=== PATIENT | male | born 1990 | race African-American/Black ===

== ENCOUNTER 2016-11-14 21:22 | Emergency (ER) | payer MEDICAID ==
[~2016-11-14] VITALS: Ht 190.5 cm; Wt 90.7 kg
[2016-11-14 21:39] VITALS: BP 127/67
== END 2016-11-14 23:54 | disposition home or self-care (01) ==
LOC: ER 21:24
DX: S50.01XA Contusion of right elbow, initial encounter (principal); F31.9 Bipolar disorder, unspecified; F10.20 Alcohol dependence, uncomplicated; F17.210 Nicotine dependence, cigarettes, uncomplicated; W13.8XXA Fall from, out of or through other building or structure, initial encounter; Y93.89 Activity, other specified; Y92.89 Other specified places as the place of occurrence of the external cause; Y99.8 Other external cause status
CPT/HCPCS: 73080; 99284; A4606; Z7610

== ENCOUNTER 2017-06-02 13:11 | Emergency (ER) | payer MEDICAID ==
[~2017-06-02] VITALS: Ht 190.5 cm; Wt 108.9 kg
[2017-06-02 13:28] VITALS: BP 133/75
== END 2017-06-02 13:52 | disposition home or self-care (01) ==
LOC: ER 13:14
DX: J40 Bronchitis, not specified as acute or chronic (principal); B00.9 Herpesviral infection, unspecified; F10.10 Alcohol abuse, uncomplicated; F31.9 Bipolar disorder, unspecified; F17.200 Nicotine dependence, unspecified, uncomplicated; J45.909 Unspecified asthma, uncomplicated
CPT/HCPCS: 99283; A4606; Z7610

== ENCOUNTER 2017-12-19 08:36 | Emergency (ER) | payer MEDICAID, OTHER ==
[~2017-12-19] VITALS: Ht 190.5 cm; Wt 108.9 kg
--- NOTE | 2017-12-19 08:50 | NUR ---
PRESENTS TO ER C/O RING STUCKED ON RT HAND 4TH FINGER. FINGER RED AND SWOLLEN. ALSO C/O NON PRODUCTIVE COUGH SINCE YESTERDAY. A/OX 4. BREATHING EVEN AND UNLABORED. NO SOB, NAD, VITALS STABLE. SAFETY AND COMFORT MEASURES IN PLACE. AWAITING MD ORDERS.
--- NOTE | 2017-12-19 09:35 | NUR ---
EMT AT BEDSIDE WITH RING CUTTER.
--- NOTE | 2017-12-19 10:03 | NUR ---
[employer]ARD MILL SUPERVISOR AT BEDSIDE.
[2017-12-19 10:27] VITALS: BP 146/83
--- NOTE | 2017-12-19 10:27 | NUR ---
Patient discharged to home in stable condition. Written and verbal after care instructions given. Patient verbalizes understanding of instruction.
== END 2017-12-19 10:28 | disposition home or self-care (01) ==
LOC: ER 08:37
DX: S60.454A Superficial foreign body of right ring finger, initial encounter (principal); J40 Bronchitis, not specified as acute or chronic; F32.9 Major depressive disorder, single episode, unspecified; F17.200 Nicotine dependence, unspecified, uncomplicated; W22.8XXA Striking against or struck by other objects, initial encounter; Y93.89 Activity, other specified; Y92.89 Other specified places as the place of occurrence of the external cause; Y99.8 Other external cause status
CPT/HCPCS: 71045; 99284; A4606; Z7610

== ENCOUNTER 2018-04-14 07:04 | Emergency (ER) | payer MEDICAID, OTHER ==
[~2018-04-14] VITALS: Ht 190.5 cm; Wt 106.6 kg
--- NOTE | 2018-04-14 07:10 | NUR ---
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 DENIES TRAUMA. VSS , ATTACHED TO MONITOR WILL CONTINUE TO MONITOR
--- NOTE | 2018-04-14 07:58 | NUR ---
Patient discharged to home in stable condition. Written and verbal after care instructions given. Patient verbalizes understanding of instruction. VSS ,
[2018-04-14 08:00] VITALS: BP 132/45
== END 2018-04-14 08:00 | disposition home or self-care (01) ==
LOC: ER 07:06
DX: S70.01XA Contusion of right hip, initial encounter (principal); M54.41 Lumbago with sciatica, right side; J45.909 Unspecified asthma, uncomplicated; F31.9 Bipolar disorder, unspecified; F90.9 Attention-deficit hyperactivity disorder, unspecified type; F10.10 Alcohol abuse, uncomplicated; F17.200 Nicotine dependence, unspecified, uncomplicated; F12.10 Cannabis abuse, uncomplicated; Y90.9 Presence of alcohol in blood, level not specified; X58.XXXA Exposure to other specified factors, initial encounter; Y93.84 Activity, sleeping; Y92.810 Car as the place of occurrence of the external cause; Y99.8 Other external cause status
CPT/HCPCS: 72110; 73502; 99284; A4606; Z7610

== ENCOUNTER 2018-06-20 15:42 | Emergency (ER) | payer OTHER ==
[~2018-06-20] VITALS: Ht 190.5 cm; Wt 109.8 kg
--- NOTE | 2018-06-20 15:46 | NUR ---
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
--- NOTE | 2018-06-20 16:32 | NUR ---
ARLINE ROPER AT BEDSIDE FOR EVAL.
[2018-06-20] MEDS ORDERED: ONDANSETRON HCL/PF 4 MG/2 ML VIAL ONE (16:41)
[2018-06-20] MEDS ORDERED: PANTOPRAZOLE 40 MG VIAL ONE (16:41)
[2018-06-20 16:47] LABS: BASOPHILS % (AUTO) 0.6 % (0.0-2.0); EOSINOPHILS % (AUTO) 0.3 % (0.0-6.0); HEMATOCRIT 49 % (39-51); HEMOGLOBIN 15.5 g/dL (13.5-17.5); MEAN CORPUSCULAR HGB CONC 32 g/dl (31.0-36.0); MEAN CORPUSCULAR VOLUME 71 fL (80-96); MONOCYTES % (AUTO) 6.3 % (2.0-12.0); NEUTROPHILS % (AUTO) 70.8 % (43.0-81.0); PLATELET COUNT (AUTO) 191 /CMM (150-450); RED BLOOD CELL COUNT(AUTO) 6.82 MIL/uL (4.5-6.0); WHITE BLOOD COUNT (AUTO) 9.9 K/uL (4.3-11.0)
[2018-06-20 16:48] LABS: BASOPHILS # (AUTO) 0.1 /CMM (0.0-0.2); LYMPHOCYTES # (AUTO) 2.2 /CMM (0.8-4.8); MONOCYTES # (AUTO) 0.6 /CMM (0.1-1.30)
[2018-06-20] MEDS: IV NS 0.9% 1,000 ML BAG IV ONE (16:48)
[2018-06-20] MEDS: PANTOPRAZOLE 40 MG VIAL IV ONE (16:49)
[2018-06-20] MEDS: ONDANSETRON HCL/PF 4 MG/2 ML VIAL IVP ONE (16:49)
[2018-06-20 17:03] LABS: CALCIUM, SERUM 9.3 mg/dL (8.5-10.1); POTASSIUM 4.2 mmol/L (3.5-5.1)
[2018-06-20 17:08] LABS: BILIRUBIN,TOTAL 0.2 mg/dL (0.2-1.0); TOTAL PROTEIN, SERUM 8.1 g/dL (6.4-8.2)
[2018-06-20 17:44] LABS: BAND % (MANUAL) 1 % (0.0-5.0); EOSINOPHILS % (MANUAL) 1 % (0-4)
[2018-06-20 17:53] LABS: NEUTROPHILS % (MANUAL) 63 (42-76)
[2018-06-20 17:54] LABS: LYMPHOCYTES % (MANUAL) 29 % (16-48); MONOCYTES % (MANUAL) 6 % (0-11.0)
--- NOTE | 2018-06-20 18:56 | NUR ---
IV removed. Catheter intact and site benign. Pressure and 4x4 applied to site. No bleeding noted. Patient discharged to home in stable condition. Written and verbal after care instructions given. Patient verbalizes understanding of instruction.
[2018-06-20 18:57] VITALS: BP 119/68
== END 2018-06-20 18:58 | disposition home or self-care (01) ==
LOC: ER 15:43
DX: K29.00 Acute gastritis without bleeding (principal); E86.0 Dehydration; F15.10 Other stimulant abuse, uncomplicated; F32.9 Major depressive disorder, single episode, unspecified; J45.909 Unspecified asthma, uncomplicated; F90.9 Attention-deficit hyperactivity disorder, unspecified type; F17.200 Nicotine dependence, unspecified, uncomplicated
CPT/HCPCS: 36415; 80048-TC; 80076-TC; 83690-TC; 85025-TC; A4606; C9113; J2405; J7030; Z7610

== ENCOUNTER 2018-10-13 15:02 | Emergency (ER) | payer MEDICAID, OTHER ==
[~2018-10-13] VITALS: Ht 188 cm; Wt 110.7 kg
[2018-10-13 15:19] VITALS: BP 138/95
--- NOTE | 2018-10-13 15:20 | NUR ---
SEEN AND EXAMINED BY DR. SWEENEY.
--- NOTE | 2018-10-13 15:20 | NUR ---
PT BIB SELF "I need my meds. Hearing voices. They call it paranoid", PT IS AAOX2, NOT IN RESPIRATORY DISTRESS, KEPT RESTED AND COMFORTABLE, WILL CONTINUE TO MONITOR.
[2018-10-13] MEDS ORDERED: OLANZAPINE 5 MG TABLET ONE (15:27)
[2018-10-13] MEDS ORDERED: LORAZEPAM 1 MG TABLET ONE (15:27)
[2018-10-13] MEDS ORDERED: LORAZEPAM 1 MG TABLET PO ONE (15:30)
[2018-10-13] MEDS ORDERED: OLANZAPINE 5 MG TABLET PO ONE (15:30)
--- NOTE | 2018-10-13 15:33 | NUR ---
URINAL GIVEN BUT UNABLE TO PROVIDE URINE SPECIMEN.
[2018-10-13 15:56] LABS: BASOPHILS # (AUTO) 0.1 /CMM (0.0-0.2); BASOPHILS % (AUTO) 0.8 % (0.0-2.0); EOSINOPHILS % (AUTO) 0.2 % (0.0-6.0); HEMATOCRIT 42 % (39-51); HEMOGLOBIN 13.6 g/dL (13.5-17.5); LYMPHOCYTES # (AUTO) 1.8 /CMM (0.8-4.8); LYMPHOCYTES % (AUTO) 17.3 % (20.0-44.0); MEAN CORPUSCULAR HGB CONC 33 g/dl (31.0-36.0); MEAN CORPUSCULAR VOLUME 70 fL (80-96); MONOCYTES # (AUTO) 0.8 /CMM (0.1-1.30); MONOCYTES % (AUTO) 7.5 % (2.0-12.0); NEUTROPHILS # (AUTO) 7.7 /CMM (1.8-8.9); NEUTROPHILS % (AUTO) 74.2 % (43.0-81.0); PLATELET COUNT (AUTO) 226 /CMM (150-450); RED BLOOD CELL COUNT(AUTO) 5.99 MIL/uL (4.5-6.0); WHITE BLOOD COUNT (AUTO) 10.4 K/uL (4.3-11.0)
[2018-10-13 16:03] LABS: CALCIUM, SERUM 9.1 mg/dL (8.5-10.1); CARBON DIOXIDE 24 mmol/L (21-32); CHLORIDE 102 mmol/L (98-107); CREATININE 1.3 mg/dL (0.6-1.3); GLUCOSE 83 mg/dL (74-106); SODIUM SERUM 138 mmol/L (136-145); UREA NITROGEN, BLOOD 18 mg/dL (7-18)
[2018-10-13 16:09] LABS: ALANINE AMINOTRANSFERASE 28 U/L (12-78); ALBUMIN 4.3 g/dL (3.4-5.0); ALKALINE PHOSPHATASE 149 U/L (46-116); ASPARTATE AMINOTRANSFERASE 27 U/L (15-37); BILIRUBIN,DIRECT 0.3 mg/dL (0.0-0.2); BILIRUBIN,TOTAL 1.1 mg/dL (0.2-1.0); TOTAL PROTEIN, SERUM 8.5 g/dL (6.4-8.2)
[2018-10-13 16:10] LABS: ACETAMINOPHEN < 2 ug/ml (10-30); ALCOHOL, BLOOD < 3 mg/dL (0-0); SALICYLATE < 2.8 mg/dL (2.8-20.0)
--- NOTE | 2018-10-13 16:50 | NUR ---
PT Patient eloped from facility. ER MD notified.
--- NOTE | 2018-10-13 17:05 | NUR ---
[facility]ED [facility] . [facility]. MERCHANDISING COORDINATOR #[id number].
--- NOTE | 2018-10-13 17:40 | NUR ---
GOT A CALL FROM [facility]. THEY CAME BY OUR FACILITY AND DID NOT FIND THE PT. [facility] STATES SINCE THEY DO NOT HAVE THIS PT ON HOLD AND WE DO NOT WELL, THEY WILL ONLY SPEAK TO HIM AND ENCOURAGE HIM TO COME BACK.
== END 2018-10-13 17:43 | disposition left against medical advice (07) ==
LOC: ER 15:07
DX: R45.1 Restlessness and agitation (principal); F15.10 Other stimulant abuse, uncomplicated; J45.909 Unspecified asthma, uncomplicated; F32.9 Major depressive disorder, single episode, unspecified; F90.9 Attention-deficit hyperactivity disorder, unspecified type; F12.90 Cannabis use, unspecified, uncomplicated
CPT/HCPCS: 36415; 80048; 80076; 80307; 80329; 85025; 99284; G0480

== ENCOUNTER 2019-08-05 10:05 | Emergency (ER) | payer OTHER, MEDICAID ==
[~2019-08-05] VITALS: Ht 188 cm; Wt 97.5 kg
--- NOTE | 2019-08-05 10:25 | NUR ---
bibpd for otb. per PD, pt refusing to talk and walk since yesterday. pt states, "i need my psych meds and i want to go home." PD at bedside, attached to the equipment monitor phototypesetting.
[2019-08-05] MEDS ORDERED: BUSP10TA35 PO (12:33)
[2019-08-05] MEDS ORDERED: QUET200T PO (12:33)
--- NOTE | 2019-08-05 12:50 | NUR ---
PT. VERBALIZED UNDERSTANDING OF AFTERCARE INSTRUCTIONS.[facility]. Written and verbal after care instructions given. Patient verbalizes understanding of instruction.
[2019-08-28 17:03] VITALS: BP 112/73
== END 2019-08-05 12:50 | disposition home or self-care (01) ==
LOC: ER 10:09
DX: M54.5 Low back pain (principal); F29 Unspecified psychosis not due to a substance or known physiological condition; J45.909 Unspecified asthma, uncomplicated; F10.10 Alcohol abuse, uncomplicated; F17.200 Nicotine dependence, unspecified, uncomplicated; F12.10 Cannabis abuse, uncomplicated; Y90.9 Presence of alcohol in blood, level not specified; Z79.899 Other long term (current) drug therapy; Z02.89 Encounter for other administrative examinations
CPT/HCPCS: 72110-TC